=== PATIENT | female | born 1975 | race Caucasian/White ===

== ENCOUNTER 2020-05-03 09:54 | Inpatient (IN) | payer OTHER, SELFPAY ==
--- NOTE | ~2020-05-03 | CT_ITS ---
EXAMINATION: CT facial bones w con DATE: 05/03/2020 11:37 INDICATION: Left facial swelling for 4 days TECHNIQUE: Computed tomography (CT) of the facial bones and maxillofacial region was performed with 7 5 cc Omnipaque 350 intravenous contrast. Automated exposure control and iterative reconstruction tech wireLawyerque were employed. Exam dose: 302.32 mGy-cm total exam DLP. COMPARISON: None. FINDINGS: There is a likely old blowout fracture of the medial wall of the right orbit. Old left nasal plate mildly angulated fracture deformity. No facial fracture is detected otherwise. Approximately 6 mm mucus retention cyst or polyp along the upper medial wall the right maxillary sinu s. The paranasal sinuses and mastoid air cells are otherwise normally developed and aerated. The patient is edentulous. Normal alignment at the temporomandibular joints. No mandibular fracture o r bone destruction. Prominent soft tissue swelling in the left premaxillary area extending into the mid and left lower fa cial region and upper lip, with prominent soft tissue infiltration of the subcutaneous fat. No draina ble abscess is identified. The parotid and submandibular glands included portion of the thyroid gland are unremarkable. IMPRESSION: Prominent premaxillary and mid and left lower facial soft tissue swelling and soft tissu e infiltration of the subcutaneous adipose tissues; no drainable abscess identified Reviewed, dictated and finalized at [facility] Reviewed, dictated and finalized at [facility] WRAPPER IMPRESSION: Prominent premaxillary and mid and left lower facial soft tissue s welling and soft tissue infiltration of the subcutaneous adipose tissues; no dr ainable abscess identified
[2020-05-03 10:05] VITALS: BP 126/89; PULSE 115; RESP 18; TEMP 37; O2SAT 100
--- NOTE | 2020-05-03 10:09 | ED.SKABFB ---
HPI - Skin/Abscess/Foreign Bdy General Chief complaint: Skin/Abscess/Foreign Body Stated complaint: swelling on L side of face Time Seen by Provider: 05/03/20 10:09 Source: patient Mode of arrival: ambulatory Limitations: no limitations History of Present Illness HPI narrative: 45-year-old woman comes in today complaining of progressive swelling of the left side of her face over the last 4-5 days. She states that she noticed, at first, a pimple near her left nare. she states the swelling is very painful and worse around her upper lip. She states she noticed this morning that she had redness going down her neck. She denies fever, vomiting, difficulty swallowing, difficulty breathing, ear pain, sore throat, cough or cold symptoms, abdominal pain, diarrhea, dysuria or hematuria. she states she had a similar episode several years ago on the left side her face which got better with oral antibiotics. MD complaint: abscess/boil Onset (ago): day(s) (4) Tetanus up to date: unsure Location: face Severity: severe Quality: sharp Pain Consistency: constant Relieving factors: none Exacerbating factors: palpation and movement Context: none Related Data Home Medications Medication Instructions Recorded Confirmed fluoxetine 40 mg PO DAILY 05/03/20 05/03/20 gabapentin 400 mg PO QID 05/03/20 05/03/20 omeprazole 20 mg PO BID 05/03/20 05/03/20 Allergies Allergy/AdvReac Type Severity Reaction Status Date / Time No Known Allergies Allergy Verified 05/03/20 10:12 Review of Systems Constitutional: Constitutional: Denies chills, Denies fever(s) and Denies weakness Eyes: Eyes: Denies change in vision and Denies photophobia Comments: Denies diplopia. ENT: Denies dysphagia, Denies nasal congestion and Denies sore throat Cardiovascular: Cardiovascular: Denies chest pain and Denies radiating jaw, neck or arm pain Respiratory: Respiratory: Denies cough and Denies dyspnea Gastrointestinal: Gastrointestinal: Denies abdominal pain, Denies diarrhea, Denies nausea and Denies vomiting Genitourinary: Genitourinary: Denies nocturia and Denies dysuria Musculoskeletal: Musculoskeletal: Denies arthralgias and Denies joint swelling Integumentary/Breasts: Skin/Breast: Reports as per HPI, Denies pruritus, Reports erythema and Denies rash Neurologic: Denies vertigo, Denies dizziness and Denies syncope Hematologic/Lymphatic: Hematologic/Lymphatic: Denies easy bleeding and Denies easy bruising Allergic/Immunologic: Allergic/Immunologic: Denies lip swelling and Denies tongue swelling PMFSH Past Medical History Medical History (Updated 05/03/20 @ 12:14 by Rancho Camacho MD) Back pain GERD (gastroesophageal reflux disease) Tubal Surgical History Surgical History (Updated 05/03/20 @ 11:03 by Rancho Camacho MD) Hx of cholecystectomy Social History Social History (Updated 05/03/20 @ 11:04 by Rancho Camacho MD) Smoking status: Current every day smoker Alcohol intake: never Substance use: never Living arrangements: with family Exam Const: General: healthy appearing and alert Nutritional Appearance: well nourished Orientation/consciousness: patient oriented x3 Other: moderate acute distress HENMT: Ears: external ears normal, TM's normal bilaterally and EAC's normal Mouth: Yes moist mucous membranes Throat: posterior oropharynx normal Other: diffuse swelling from the lower half of the left forehead to the chin, mostly surrounding the left upper lip which has significant edema. Moderate ptosis on the left. Eyes: Conjunctivae: conjunctivae normal Pupils: Equal, round and reactive pupils present EOM: EOMs intact bilaterally Neck: Neck: normal visual inspection and no lymphadenopathy Resp: Effort & Inspection: normal respiratory effort and labored Auscultation: clear to auscultation bilaterally, rales, rhonchi and wheezes Cardio: Rate: regular rate Rhythm: regular rhythm GI: GI Palp: Yes Soft
[2020-05-03 10:59] LABS: Hematocrit 43.3 % (35.0-49.0); Hemoglobin 14.4 g/dL (12.0-15.0); Mean Corpuscular HGB Conc 33.3 g/dL (32.0-36.0); Mean Corpuscular Hemoglobin 29.9 pg (27.0-31.0); Mean Corpuscular Volume 89.8 fL (78.0-102.0); Mean Platelet Volume 9.6 fl (9.2-11.8); Platelet Count Result 372 K/mm3 (150-420); Red Blood Count 4.82 M/mm3 (4.20-5.40); Red Cell Distribution Width 13.2 % (11.6-14.4)
[2020-05-03] MEDS: SODIUM CHLORIDE 0.9% IV 1,000 ML 999 ML IV CONT (11:00)
[2020-05-03] MEDS: ONDANSETRON INJ 4 MG/2 ML VIAL IV PUSH (11:02)
[2020-05-03 11:05] LABS: Appearance Urine Clear (Clear); Bilirubin Urine Negative (Negative); Color Urine Yellow (Yellow); Glucose Urine UA Negative (Negative); Ketones Urine Negative (Negative); Leukocyte Esterase Ur Negative LEU/UL (Negative); Nitrate Urine Negative (Negative); Protein Urine Negative (Negative); Urobilinogen Urine 0.2 mg/dL (0.2-1.0)
[2020-05-03] MEDS: HYDROmorphone HCL INJ (*CRX) 2 MG/ML VIAL 0.5 MG IV PUSH ×5 (11:05→23:03)
[2020-05-03 11:06] LABS: White Blood Count 26.7 K/mm3 (4.8-10.8)
[2020-05-03 11:08] LABS: Pregnancy On Board Control Positive; Urine Pregnancy Test Negative
[2020-05-03 11:11] LABS: Add Urine Microscopic? YES; Bacteria Urine 2+ /hpf; Blood Urine Trace-Intact (Negative); Squamous Epithelial Cell Urine Many /hpf (Few)
[2020-05-03 11:12] LABS: Lactic Acid Reflex 3.8 mmol/L (0.4-2.0)
[2020-05-03 11:15] LABS: Alanine Aminotransferase 14 U/L (14-59); Albumin Level 2.8 g/dL (3.4-5.0); Alkaline Phosphatase 183 U/L (46-116); Bilirubin,Total 0.3 mg/dL (0.00-1.00); Blood Urea Nitrogen 18 mg/dL (7-18); Calcium 9.8 mg/dL (8.5-10.1); Carbon Dioxide 22 mmol/L (21-32); Chloride 95 mmol/L (98-108); Estimated CRCL calculation 42 ml/min; Estimated Glomerular Filt Rate 39; Glucose 81 mg/dL (70-99); Total Protein 8.6 g/dL (6.4-8.2)
[2020-05-03 11:16] LABS: Band Neutrophils Percent 1 % (0-6); Lymphocytes Absolute Manual 1.33 K/mm3 (1.1-4.5); Lymphocytes Percent Manual 5 % (18-44); Monocytes Percent Manual 3 % (3-9); Neutrophils Absolute Manual 24.56 K/mm3 (1.7-7.2); Neutrophils Percent Manual 91 % (46-73); Platelet Estimate Adequate (Adequate); Total Cells Counted 100
[2020-05-03 11:19] LABS: Anion Gap 16 mmol/L (8-16); Osmolality Calculated 276 mOsm/kg (285-295); Potassium 2.6 mmol/L (3.5-5.1); Sodium 133 mmol/L (136-145)
[2020-05-03 11:20] LABS: Partial Thromboplastin Time 22.6 SEC (23.90-30.70); Prothrombin Time 10.9 Seconds (9.64-11.0)
[2020-05-03 11:25] LABS: CRP > 25.0 mg/dL (0.0-0.9)
[2020-05-03 11:26] LABS: Aspartate Amino Transferase 14 U/L (15-37)
--- NOTE | 2020-05-03 12:04 | PC.NURSE ---
Dr. Camacho speaking with DR. Gonsalves, ent o/c at [place].
[2020-05-03 12:25] VITALS: BP 148/88; PULSE 92; RESP 18; O2SAT 98
[2020-05-03] MEDS: SODIUM CHLORIDE 0.9% IV 1,000 ML 100 ML IV CONT (13:32)
[2020-05-03] MEDS: FLUoxetine HCL 10 MG CAPSULE 40 MG PO (13:33)
[2020-05-03] MEDS: GABAPENTIN 400 MG CAPSULE PO ×3 (13:33→20:01)
[2020-05-03 13:40] VITALS: BP 148/95; PULSE 93; RESP 18; TEMP 37.1; O2SAT 99
[2020-05-03 13:48] VITALS: BMI 26.1
[2020-05-03 13:54] LABS: Reflex Lactic Acid Yes or No Add Lactic
--- NOTE | 2020-05-03 14:45 | PM.IMHP ---
H&P: HPI History of Present Illness Date/Time: 05/03/20 14:45 Chief Complaint: Cellulitis of the face Narrative: Lisbeth Medrano is a 45 year old female with complaints of left facial swelling. Past medical history back pain, GERD and tubular . Patient did note approximately 6 months ago she experienced the same episode went to her primary care physician office she was given antibiotics and steroids. Patient notes that she had a pimple to her left knee there which worsened and resulted in her having swelling to her left eye and left side of her upper and lower lip. Patient denies any visual disturbance or problems with breathing. She did note that the site is pain she also noted that her upper lip is split into inside. On admission patient's WBCs 26.7, sodium 133, potassium 2.6, creatinine 1.45, lactic acid 3.8, CRP greater than 25 patient UA with RBCs WBCs and bacteria. CT of the face indicates soft tissue swelling no abscess noted, UA culture and blood culture pending patient currently receiving Rocephin , vancomycin and Solu-Medrol. Patient be admitted for cellulitis of the face the patient denies SOB, CP, palpitation, extremity numbness, lightheadedness, dizziness, constipation, diarrhea, chills, visual disturbance throat closure or fever. Patient does complain of pain to the left side of her face. Pain is being managed by pain medication. Review of Systems Review of Systems: All systems reviewed & are unremarkable except as noted in HPI and below (10 point system review) [facility] Past Medical History Medical History (Updated 05/03/20 @ 14:59 by GINA Butt) Back pain GERD (gastroesophageal reflux disease) Tubal Surgical History Surgical History (Updated 05/03/20 @ 11:03 by Rancho Camacho MD) Hx of cholecystectomy Social History Social History (Updated 05/03/20 @ 11:04 by Rancho Camacho MD) Smoking packs per day: 0.5 Smoking cigarettes per day: 10.0 Years smoked: 20 Smoking pack-years: 10.00 Smoking status: Current every day smoker Tobacco type: cigarettes Alcohol intake: never Substance use: never Substance use type: marijuana Other substance usage details: Couple times a week Living arrangements: with family Spiritual care concerns: No Meds Home Medications and Allergies Home Medications Medication Instructions Recorded Confirmed Type fluoxetine 40 mg PO DAILY 05/03/20 05/03/20 History gabapentin 400 mg PO QID 05/03/20 05/03/20 History omeprazole 20 mg PO BID 05/03/20 05/03/20 History Allergies Allergy/AdvReac Type Severity Reaction Status Date / Time No Known Allergies Allergy Verified 05/03/20 10:12 Vital Signs Vital Signs - 24 hr 05/03/20 10:05 05/03/20 12:25 05/03/20 13:40 Temperature 98.6 F 98.7 F Pulse Rate 115 H 92 93 Respiratory Rate 18 18 18 Blood Pressure 126/89 148/88 H 148/95 H Pulse Oximetry 100 98 99 Exam Narrative: Exam Narrative: GENERAL: This is a well-nourished, well-developed patient, in no apparent distress. HEAD: Facial swelling on left side of face with erythema to the left eye and left upper and lower lip with open area to the inside of upper lip due to edema EYES: PERRL. Sclera clear/white. Vision is grossly intact. EARS: External ears normal, auditory canals clear and without drainage, TMs normal without perforation. Hearing grossly intact. NOSE: External nose normal with no obvious nasal discharge, nares without redness, no rhinorrhea. THROAT: Mucous membranes moist, posterior pharynx clear. NECK: Neck supple, non-tender without lymphadenopathy, masses or thyromegaly. CARDIOVASCULAR: Regular rate and rhythm without murmurs, gallops, or rubs. RESPIRATORY: Clear to auscultation. Breath sounds equal bilaterally. No wheezes, rales, or rhonchi. GASTROINTESTINAL: Abdomen soft, non-tender, nondistended. Bowel sounds are active. No hepato-splenomegaly, or palpable masses. No guarding. SKIN: warm, inta
[2020-05-03] MEDS: methylPREDNISolone SOD SUCC 125 MG VIAL IV PUSH ×2 (15:30→22:52)
[2020-05-03] MEDS: KCL 20 MEQ/SW 100 ML 100 ML 50 MEQ IVPB ×2 (15:46→17:46)
[2020-05-03 16:00] VITALS: BP 125/84; PULSE 99; RESP 20; TEMP 36.6; O2SAT 98
[2020-05-03] MEDS: PANTOPRAZOLE 40 MG TABLET PO (16:57)
[2020-05-03] MEDS: ZOLPIDEM TARTRATE (*CRX) 5 MG TABLET PO (20:01)
[2020-05-03] MEDS: LORazepam INJ (*CRX) 2 MG/ML VIAL 0.5 MG IV PUSH (20:02)
[2020-05-03 23:52] VITALS: BP 146/96; PULSE 79; RESP 18; TEMP 36.6; O2SAT 96
[2020-05-04] MEDS: SODIUM CHLORIDE 0.9% IV 1,000 ML 100 ML IV CONT (00:19)
--- NOTE | 2020-05-04 01:52 | PC.NURSE ---
pt sleeping, no evidence of distress noted, iv fluids infusing per order, belongings and call light within reach
[2020-05-04] MEDS: HYDROmorphone HCL INJ (*CRX) 2 MG/ML VIAL 0.5 MG IV PUSH ×6 (03:07→21:44)
[2020-05-04] MEDS: methylPREDNISolone SOD SUCC 125 MG VIAL IV PUSH ×3 (05:15→21:43)
[2020-05-04 05:53] LABS: Basophils Absolute Auto 0.02 K/mm3 (0.00-0.10); Basophils Percent Auto 0.2 % (0.0-1.0); Hematocrit 35.7 % (35.0-49.0); Hemoglobin 11.7 g/dL (12.0-15.0); Immature Granulocyte Absolute 0.14 K/mm3 (0.00-0.00); Immature Granulocyte Percent A 1.1 % (0.0-0.0); Lymphocytes Absolute Auto 0.77 K/mm3 (1.10-4.50); Lymphocytes Percent Auto 6.3 % (18.0-42.0); Mean Corpuscular HGB Conc 32.8 g/dL (32.0-36.0); Mean Corpuscular Hemoglobin 29.5 pg (27.0-31.0); Mean Corpuscular Volume 90.2 fL (78.0-102.0); Mean Platelet Volume 9.3 fl (9.2-11.8); Monocytes Absolute Auto 0.31 K/mm3 (0.10-0.90); Monocytes Percent Auto 2.5 % (2.0-11.0); Neutrophils Percent Auto 89.9 % (50.0-70.0); Platelet Count Result 278 K/mm3 (150-420); Red Blood Count 3.96 M/mm3 (4.20-5.40); Red Cell Distribution Width 13.2 % (11.6-14.4); White Blood Count 12.2 K/mm3 (4.8-10.8)
[2020-05-04 06:20] LABS: Alanine Aminotransferase 16 U/L (14-59); Albumin Level 2.2 g/dL (3.4-5.0); Alkaline Phosphatase 159 U/L (46-116); Anion Gap 13 mmol/L (8-16); Aspartate Amino Transferase 14 U/L (15-37); Bilirubin,Total 0.2 mg/dL (0.00-1.00); Blood Urea Nitrogen 17 mg/dL (7-18); Calcium 8.8 mg/dL (8.5-10.1); Carbon Dioxide 20 mmol/L (21-32); Chloride 100 mmol/L (98-108); Estimated CRCL calculation 56 ml/min; Estimated Glomerular Filt Rate > 60; Glucose 132 mg/dL (70-99); Osmolality Calculated 279 mOsm/kg (285-295); Potassium 3.8 mmol/L (3.5-5.1); Sodium 133 mmol/L (136-145)
[2020-05-04 06:23] LABS: Magnesium 1.5 mg/dL (1.8-2.4)
[2020-05-04 08:00] VITALS: BP 152/86; PULSE 74; RESP 18; TEMP 36.4; O2SAT 98
--- NOTE | 2020-05-04 08:46 | WPDPN ---
Progress Note: A&P Assessment and Plan (1) Cellulitis of face: Code(s): L03.211 - Cellulitis of face Status: Acute Assessment and Plan: WBCs 26.7, lactic acid 3.8, CRP greater than 25 on admission currently WBCs 12.2 lactic acid 2.0 and CRP 18. Has improved Blood culture pending CT of the face indicates Prominent premaxillary and mid and left lower facial soft tissue swelling and soft tissue infiltration of the subcutaneous adipose tissues; no drainable abscess identified Will continue vancomycin and Solu-Medrol Added Benadryl PRN (2) Acute renal failure: Qualifiers: Acute renal failure type: unspecified Qualified Code(s): N17.9 - Acute kidney failure, unspecified Code(s): N17.9 - Acute kidney failure, unspecified Status: Acute Assessment and Plan: Resolved Creatinine 1.45 -->0.93 unsure of baseline Will repeat in the a.m. (3) Acute hypokalemia: Code(s): E87.6 - Hypokalemia Status: Acute Assessment and Plan: Resolved K rider given 40 mEq on admission Rechecked in a.m. (4) Back pain: Code(s): M54.9 - Dorsalgia, unspecified Status: Acute Assessment and Plan: Continue pain medication (5) GERD (gastroesophageal reflux disease): Code(s): K21.9 - Gastro-esophageal reflux disease without esophagitis Status: Acute Assessment and Plan: Continue Protonix (6) UTI (urinary tract infection): Code(s): N39.0 - Urinary tract infection, site not specified Status: Acute Assessment and Plan: UA indicates RBCs WBCs and bacteria Urine culture pending Continue Rocephin day 1 Review of Systems Review of Systems: All systems reviewed & are unremarkable except as noted in HPI and below (10 point system review) Exam Narrative: Exam Narrative: GENERAL: This is a well-nourished, well-developed patient, in no apparent distress. HEAD: Facial swelling on left side of face with erythema to the left eye and left upper and lower lip with open area to the inside of upper lip due to edema EYES: PERRL. Sclera clear/white. Vision is grossly intact. EARS: External ears normal, auditory canals clear and without drainage, TMs normal without perforation. Hearing grossly intact. NOSE: External nose normal with no obvious nasal discharge, nares without redness, no rhinorrhea. THROAT: Mucous membranes moist, posterior pharynx clear. NECK: Neck supple, non-tender without lymphadenopathy, masses or thyromegaly. CARDIOVASCULAR: Regular rate and rhythm without murmurs, gallops, or rubs. RESPIRATORY: Clear to auscultation. Breath sounds equal bilaterally. No wheezes, rales, or rhonchi. GASTROINTESTINAL: Abdomen soft, non-tender, nondistended. Bowel sounds are active. No hepato-splenomegaly, or palpable masses. No guarding. SKIN: warm, intact with no suspicious lesions or rash, good texture and turgor. NEURO: awake, alert, and oriented to person, place and time. There were no obvious focal neurologic abnormalities. Steady gait EXTREMITIES: Normal range of motion. No edema. No calf tenderness. Negative Homans sign bilaterally. BACK: Nontender without deformity or crepitance. No flank tenderness. Objective Data Vital Signs Vital Signs: Vital Signs - 24 hr 05/03/20 10:05 05/03/20 12:25 05/03/20 13:40 Temperature 98.6 F 98.7 F Pulse Rate 115 H 92 93 Respiratory Rate 18 18 18 Blood Pressure 126/89 148/88 H 148/95 H Pulse Oximetry 100 98 99 05/03/20 16:00 05/03/20 23:52 05/04/20 08:00 Temperature 97.8 F 98 F 97.5 F L Pulse Rate 99 79 74 Respiratory Rate 20 18 18 Blood Pressure 125/84 146/96 H 152/86 H Pulse Oximetry 98 96 98 Intake/Output Intake/Output: Intake & Output 05/01/20 05/02/20 05/03/20 05/04/20 23:59 23:59 23:59 23:59 Intake Total 2760 2550 Balance 2760 2550 Meds/Results Medications: Active Medications Generic Name Dose Route Start Last Admin Trade Name Freq PRN Reason Stop D
[2020-05-04] MEDS: GABAPENTIN 400 MG CAPSULE PO ×4 (09:05→21:43)
[2020-05-04] MEDS: MAGNESIUM OXIDE 400 MG TABLET PO (09:05)
[2020-05-04] MEDS: ENOXAPARIN 40 MG/0.4 ML SYRINGE SUB-Q (09:05)
[2020-05-04] MEDS: PANTOPRAZOLE 40 MG TABLET PO ×2 (09:05→16:54)
[2020-05-04] MEDS: FLUoxetine HCL 10 MG CAPSULE 40 MG PO (09:05)
[2020-05-04] MEDS: traMADol HCL (*CRX) 50 MG TABLET PO ×2 (09:48→16:54)
[2020-05-04 16:00] VITALS: BP 152/99; PULSE 82; RESP 18; TEMP 36.4; O2SAT 97
[2020-05-04 23:55] VITALS: BP 141/91; PULSE 83; RESP 18; TEMP 36.6; O2SAT 99
--- NOTE | 2020-05-05 02:02 | PC.NURSE ---
pt sleeping, no evidence of distress noted, belongings and call light within reach
[2020-05-05] MEDS: LORazepam INJ (*CRX) 2 MG/ML VIAL 0.5 MG IV PUSH (03:42)
[2020-05-05] MEDS: methylPREDNISolone SOD SUCC 125 MG VIAL IV PUSH (05:06)
[2020-05-05] MEDS: HYDROmorphone HCL INJ (*CRX) 2 MG/ML VIAL 0.5 MG IV PUSH (05:08)
[2020-05-05 05:50] LABS: Estimated CRCL calculation 53 ml/min; Estimated Glomerular Filt Rate > 60
[2020-05-05 07:40] VITALS: BP 151/87; PULSE 85; RESP 18; TEMP 36.6; O2SAT 97
[2020-05-05 08:08] LABS: Alanine Aminotransferase 22 U/L (14-59); Albumin Level 2.2 g/dL (3.4-5.0); Alkaline Phosphatase 153 U/L (46-116); Anion Gap 11 mmol/L (8-16); Aspartate Amino Transferase 15 U/L (15-37); Bilirubin,Total 0.2 mg/dL (0.00-1.00); Blood Urea Nitrogen 19 mg/dL (7-18); Calcium 9.1 mg/dL (8.5-10.1); Carbon Dioxide 24 mmol/L (21-32); Chloride 101 mmol/L (98-108); Estimated CRCL calculation 53 ml/min; Estimated Glomerular Filt Rate > 60; Glucose 125 mg/dL (70-99); Osmolality Calculated 285 mOsm/kg (285-295); Potassium 3.7 mmol/L (3.5-5.1); Sodium 136 mmol/L (136-145); Total Protein 6.9 g/dL (6.4-8.2)
[2020-05-05 08:25] LABS: Red Blood Count 3.98 M/mm3 (4.20-5.40); White Blood Count 15.5 K/mm3 (4.8-10.8)
[2020-05-05 08:26] LABS: Hematocrit 36.1 % (35.0-49.0); Hemoglobin 11.8 g/dL (12.0-15.0); Mean Corpuscular HGB Conc 32.7 g/dL (32.0-36.0); Mean Corpuscular Hemoglobin 29.6 pg (27.0-31.0); Mean Corpuscular Volume 90.7 fL (78.0-102.0); Mean Platelet Volume 9.5 fl (9.2-11.8); Platelet Count Result 329 K/mm3 (150-420); Red Cell Distribution Width 13.2 % (11.6-14.4)
[2020-05-05] MEDS: ACETAMINOPHEN/CODEINE (*CRX) 300/30 MG TABLET 1 TAB PO (09:09)
[2020-05-05] MEDS: FLUoxetine HCL 10 MG CAPSULE 40 MG PO (09:09)
[2020-05-05] MEDS: PANTOPRAZOLE 40 MG TABLET PO (09:10)
[2020-05-05] MEDS: MAGNESIUM OXIDE 400 MG TABLET PO (09:10)
[2020-05-05] MEDS: ENOXAPARIN 40 MG/0.4 ML SYRINGE SUB-Q (09:10)
[2020-05-05] MEDS: GABAPENTIN 400 MG CAPSULE PO (09:10)
--- NOTE | 2020-05-05 09:18 | PM.DS ---
DS: Admitting Diagnosis Admitting Diagnosis Admitting Diagnosis: Cellulitis of the face, acute renal failure and hypokalemia DS: Discharge Diagnosis Discharge Diagnosis (1) Cellulitis of face: Code(s): L03.211 - Cellulitis of face Status: Acute Assessment and Plan: WBCs 26.7-->12.2-->15.5, lactic acid 3.8-->wnl , CRP greater than 25-->18.0 . Has improved Blood culture pending, wound culture of the lip with growth of staph aureus patient will discharge home with Bactrim twice daily for [address] of the face indicates Prominent premaxillary and mid and left lower facial soft tissue swelling and soft tissue infiltration of the subcutaneous adipose tissues; no drainable abscess identified As inpatient vancomycin and Solu-Medrol will discharge home with Bactrim twice daily for 14 days to cover cellulitis in urinary tract infection also prednisone WBCs remain elevated possibly due to use of steroids (2) Acute renal failure: Qualifiers: Acute renal failure type: unspecified Qualified Code(s): N17.9 - Acute kidney failure, unspecified Code(s): N17.9 - Acute kidney failure, unspecified Status: Acute Assessment and Plan: Resolved Creatinine 1.45 -->0.93-->0.97 unsure of baseline (3) Acute hypokalemia: Code(s): E87.6 - Hypokalemia Status: Acute Assessment and Plan: Resolved K rider given 40 mEq on admission (4) Back pain: Code(s): M54.9 - Dorsalgia, unspecified Status: Acute Assessment and Plan: Continue pain medication (5) GERD (gastroesophageal reflux disease): Code(s): K21.9 - Gastro-esophageal reflux disease without esophagitis Status: Acute Assessment and Plan: Continue Protonix (6) UTI (urinary tract infection): Code(s): N39.0 - Urinary tract infection, site not specified Status: Acute Assessment and Plan: UA indicates RBCs WBCs and bacteria Urine culture pending Started Rocephin will discharge home with Bactrim twice daily x14 days DS: Summary Hospital Course Hospital Course: Lisbeth Medrano is a 45 year old female who presented with complaints of left facial swelling. Past medical history back pain, GERD and tubular . Patient did note approximately 6 months ago she experienced the same episode went to her primary care physician office she was given antibiotics and steroids. Patient notes that she had a pimple to her left nare which worsened and resulted in her having swelling to her left eye and left side of her upper and lower lip that started 4 days previously to being admitted into the hospital. Patient denies any visual disturbance or problems with breathing. She did note that the site is painful she also noted that her upper lip is split in the inside. On admission patient's WBCs 26.7, sodium 133, potassium 2.6, creatinine 1.45, lactic acid 3.8, CRP greater than 25 patient UA with RBCs WBCs and bacteria. CT of the face indicates soft tissue swelling no abscess noted, UA culture and blood culture pending patient currently receiving Rocephin , vancomycin and Solu-Medrol. Patient was admitted for cellulitis of the face the patient denies SOB, CP, palpitation, extremity numbness, lightheadedness, dizziness, constipation, diarrhea, chills, visual disturbance throat closure or fever. Patient facial edema erythema has much improved since admission. Patient agrees that she is ready for discharge she will discharge home with clindamycin her culture of her left ear growth of staph aureus. She will also discharged home with prednisone , chlorhexidine and pain medication. She will need to follow-up with her primary care physician. Also informed her that the sensitivity has not returned if the antibiotic that we discharge her with is an appropriate we will call in a new antibiotic and she will need to start the new antibiotic. Time Spent with Patient Time attestation: Total time spent pr
[2020-05-05 09:38] LABS: Magnesium 1.5 mg/dL (1.8-2.4)
--- NOTE | 2020-05-05 12:45 | PC.NURSE ---
All discharged instructions and education reviewed with patient. Patient states understanding, denies any questions. IV site removed, tip intact. Dressing applied to site. All belongings gathered and sent home with patient. Patient accompanied to door by this nurse and left via private vehicle with mother.
--- NOTE | 2020-05-08 10:55 | PC.NURSE ---
Unable to reach for discharge call back.
== END 2020-05-05 12:45 | disposition home or self-care (01) | DRG 383 ==
LOC: CHSED 12:14 → CHS2ND 05-05 08:10
PROVIDERS: Nurse Practitioner; Admitting Provider Emergency Medicine; Emergency Provider Emergency Medicine; Visit Provider Emergency Medicine
DX: L03.211 Cellulitis of face (principal); K21.9 Gastro-esophageal reflux disease without esophagitis; Z90.49 Acquired absence of other specified parts of digestive tract; F17.200 Nicotine dependence, unspecified, uncomplicated; N39.0 Urinary tract infection, site not specified; N17.9 Acute kidney failure, unspecified; E87.6 Hypokalemia; M54.9 Dorsalgia, unspecified; F17.210 Nicotine dependence, cigarettes, uncomplicated
CPT/HCPCS: 36415; 70487; 80053; 81001; 81025; 82565; 83605; 83735; 85025; 85027; 85610; 85730; 86140; 87040; 87070; 87077; 87086; 87088; 87186; 87205; 96361; 96374; 96375; 99285; A9270; J0696; J1170; J1650; J2060; J2405; J2930; J3370; J3480; J7030; Q9967

== ENCOUNTER 2021-10-29 14:20 | Emergency (ER) | payer OTHER, SELFPAY ==
[2021-10-29 14:27] VITALS: BP 145/87; PULSE 81; RESP 19; TEMP 36.4; O2SAT 100
[2021-10-29 14:31] VITALS: BP 145/87; PULSE 102; RESP 20; TEMP 36.4; O2SAT 100
--- NOTE | 2021-10-29 14:52 | ED.SKABFB ---
HPI - Skin/Abscess/Foreign Bdy General Chief complaint: Skin/Abscess/Foreign Body Stated complaint: infection in nose 3 days Time Seen by Provider: 10/29/21 14:39 Source: patient Mode of arrival: ambulatory Limitations: no limitations History of Present Illness HPI narrative: this is a 46-year-old female with a lesion on the interior of her left nostril with history of MRSA currently there is some crusting on the left nostril area with no drainage no fever chills no shortness of breath. complaint: abscess/boil Onset (ago): day(s) Tetanus up to date: yes Location: face Severity: mild Related Data Home Medications Medication Instructions Recorded Confirmed fluoxetine 40 mg capsule 40 mg PO BID 05/03/20 10/29/21 omeprazole 20 mg capsule,delayed 20 mg PO BID 05/03/20 10/29/21 release gabapentin 800 mg tablet 800 mg PO TID 10/29/21 10/29/21 Allergies Allergy/AdvReac Type Severity Reaction Status Date / Time No Known Allergies Allergy Verified 10/29/21 14:27 Review of Systems Review of Systems: All systems reviewed & are unremarkable except as noted in HPI and below PMFSH Past Medical History Medical History Back pain GERD (gastroesophageal reflux disease) Tubal Surgical History Surgical History Hx of cholecystectomy Social History Social History Smoking packs per day: 0.5 Smoking cigarettes per day: 10.0 Years smoked: 20 Smoking pack-years: 10.00 Smoking status: Current every day smoker Tobacco type: cigarettes Alcohol intake: never Substance use: never Substance use type: marijuana Other substance usage details: Couple times a week Spiritual care concerns: No Exam Const: General: healthy appearing HENMT: General nose exam: Normal nares present ( Crusty yellow lesion left nostril) Mouth: Yes Normal oral and palatal mucosa present Eyes: Conjunctivae: conjunctivae normal Pupils: Equal, round and reactive pupils present EOM: EOMs intact bilaterally Neck: Neck: normal visual inspection Chest: Chest palpation & inspection: normal inspection of the chest Resp: Effort & Inspection: normal respiratory effort Cardio: Rate: regular rate Rhythm: regular rhythm GI: Auscultation: normal bowel sounds Back/Spine/Pelvis: Back: no CVA tenderness Skin: General skin exam: normal color Rashes: no rashes Wounds: wounds noted Neuro: General: patient oriented x3 Cranial nerves: Yes Nystagmus not present Speech: normal speech Extrem: General: normal to inspection, no clubbing, cyanosis or edema and no pedal edema Psych: Mental Status: mental status grossly normal Course Course Emergency Course: has a history of MRSA in nostril and will be sending antibiotics to her local pharmacy. Vital Signs Vital signs: Vital Signs Temperature 36.4 C 10/29/21 14:27 Pulse Rate 81 10/29/21 14:27 Respiratory Rate 19 10/29/21 14:27 Blood Pressure 145/87 H 10/29/21 14:27 Pulse Oximetry 100 10/29/21 14:27 Oxygen Delivery Room Air 10/29/21 14:27 Temperature 36.4 C 10/29/21 14:31 Pulse Rate 102 H 10/29/21 14:31 Respiratory Rate 20 10/29/21 14:31 Blood Pressure 145/87 H 10/29/21 14:31 Pulse Oximetry 100 10/29/21 14:31 Oxygen Delivery Room Air 10/29/21 14:31 Critical Care Time Critical Care Time Critical Care Time: No Discharge Plan Discharge Clinical Impression: Abscess of skin or subcutaneous tissue Patient Disposition: Home, Self-Care Condition: Stable Instructions: Antibiotic Form, Abscess (ED) Additional Instructions: Take medicines as prescribed and keep follow-up appointment with primary as scheduled. Prescriptions: New amoxicillin-pot clavulanate [Augmentin] 500-125 mg tablet 1 tablet PO TID Qty: 30 0RF mupirocin 2 % ointmen
[2021-10-29 15:13] VITALS: BP 140/82; PULSE 98; RESP 20; O2SAT 100
== END 2021-10-29 15:17 | disposition home or self-care (01) ==
LOC: CHSED 15:13
PROVIDERS: Emergency Provider Emergency Medicine; PCP Nurse Practitioner Family
DX: J34.0 Abscess, furuncle and carbuncle of nose (principal)
CPT/HCPCS: 99283